=== PATIENT | female | born 1940 | race Asian ===

== ENCOUNTER → 2016-09-26 | Day surgery (SDC) | payer OTHER, SELFPAY ==
[~2016-09-26] VITALS: Ht 154.9 cm; Wt 86.2 kg
[2016-09-26] VITALS (11 sets, daily range): BP systolic 120–162; BP diastolic 72–80
[~2016-09-26] MED LIST: ADVAIR 250-501 EACH INH; ASPIR 8181 MG ORAL; BSS 15ml BTL ONE; BSS 500ml btl ONE; Dexamethasone 4mg/ml vial ONE; EPINEPHrine 1mg/1ml Amp ONE; LEVOTHYROXINE50 MCG ORAL; LR 1000ml ONE; Lidocaine 1% MPF 10mg/ml 5ml ONE; Midazolam 2mg/2ml Inj ONE; NS Irrig 1000ml ONE; Povidone-Iodine 5% opth solution ONE; SINGULAIR10 MG ORAL; Sodium Hyaluronate 14 mg/ml 0.85ml ONE; Sterile Water Irrig 1000ml IRRIG ONE; THEOPHYLLINE A300 MG PO; VIT D; fentaNYL 100 mcg/2 mL IV ONE
--- NOTE | 2016-09-26 07:41 | Pre-Procedure Note/Attestation ---
Pre-Procedure Note/Attestation Complete Prior to Procedure Planned Procedure: left Procedure Narrative: cataract extraction with implant left eye Indications for Procedure Pre-Operative Diagnosis: cataract left eye Attestation I attest that I discussed the nature of the procedure; its benefits; risks and complications; and alternatives (and the risks and benefits of such alternatives ), prior to the procedure, with the patient (or the patient's legal small business sales representative). I attest that, if there was a reasonable possibility of needing a blood transfusion, the patient (or the patient's legal small business sales representative) was given the [facility] standardized written summary, pursuant to the Abran Madelaine Blood Safety Act ([place] Health and Safety Code # 1645, as amended). I attest that I re-evaluated the patient just prior to the surgery and that there has been no change in the patient's H&P, except as documented below: KRISTIN YADAV Sep 26, 2016 07:41
[2016-09-26] MEDS: Phenylephrine 2.5% Op Soln LEFT EYE SCH ×3 (07:54→08:23)
[2016-09-26] MEDS: Tropicamide 1% Opth Soln LEFT EYE SCH ×3 (07:54→08:24)
[2016-09-26] MEDS: Gatifloxacin Opth Solution 0.5% LEFT EYE SCH ×3 (07:58→08:25)
[2016-09-26] MEDS: Diclofenac Sod 0.1% Op Soln LEFT EYE SCH ×3 (07:59→08:25)
[2016-09-26] MEDS: Tobradex Opth Susp 2.5ml LEFT EYE SCH ×3 (07:59→08:24)
[2016-09-26] MEDS: Akten 3.5% 1ml Btl LEFT EYE SCH ×3 (08:00→08:25)
--- NOTE | 2016-09-26 09:42 | Brief Operative Note ---
Immediate Post Operative Note Operative Note Pre-op Diagnosis: cataract left eye Procedure: phacoemulsification of cataract with implant left eye Post-op Diagnosis: same as pre-op Surgeon: kristin lock Boiler Tester: none Anesthesiologist: marlee loaiza Anesthesia: MAC Specimen: none Complications: none Condition: stable Estimated Blood Loss: none Drains: none Implant(s) used?: Yes KRISTIN LOCK Sep 26, 2016 09:42
--- NOTE | 2016-09-26 10:46 | 48 Hour Post Anesthesia Eval ---
Post Anesthesia Evaluation Procedure: cataract extraction left eye Date of Evaluation: Sep 26, 2016 Time of Evaluation: 10:45 Blood Pressure Systolic: 156 0: 75 Pulse Rate: 86 O2 Sat by Pulse Oximetry: 99 Airway: patent Nausea: No Vomiting: No Hydration Status: adequate Cardiopulmonary Status: normal Mental Status/LOC: patient returned to baseline Post-Anesthesia Complications: none Follow-up care needed: N/A MADHAV SPARKS CRNA Sep 26, 2016 10:46
--- NOTE | 2016-09-26 10:47 | Immediate Post-Op Evaluation ---
Immediate Post-Op Evalulation Immediate Post-Op Evalulation Procedure: cataract extraction left eye Date of Evaluation: Sep 26, 2016 Time of Evaluation: 09:40 IV Fluids: 200 Blood Pressure Systolic: 139 Blood Pressure Diastolic: 75 Pulse Rate: 86 Respiratory Rate: 14 O2 Sat by Pulse Oximetry: 99 Nausea: No Vomiting: No Patient Status: awake, reacts, patent Hydration Status: adequate Drug: none PHILIPPERIMADHAV HERNANDEZ CRNA Sep 26, 2016 10:47
--- NOTE | 2016-09-26 10:48 | Anethesia Preoperative Eval ---
Anesthesia Pre-op PMH/ROS General Date of Evaluation: Sep 26, 2016 Time of Evaluation: 09:10 Anesthesiologist: josse ASA Score: ASA 2 Mallampati Score Class I : Soft palate, uvula, fauces, pillars visible Class II: Soft palate, uvula, fauces visible Class III: Soft palate, base of uvula visible Class IV: Only hard plate visible Mallampati Classification: Class II Surgeon: Corbin Diagnosis: cataract Surgical Procedure: cataract extraction left eye IOL Anesthesia History: none Family History: no anesthesia problems Allergies: Coded Allergies: No Known Allergies (Unverified , 09/26/16) Medications: see eMAR Past Medical History Cardiovascular: Denies: CAD, HTN, ID, arrhythmia, other, valve dz Pulmonary: Reports: asthma Gastrointestinal/Genitourinary: Denies: CRI, ESRD, GERD, other Neurologic/Psychiatric: Denies: CVA, TIA, dementia, depression/anxiety, other Endocrine: Reports: hypothyroidism HEENT: Reports: cataract (L) Hematology/Immune: Denies: DVT, anemia, bleeding disorder, other Musculoskeletal/Integumentary: Denies: DDD, DJD, OA, RA, edema, other Other: obesity Anesthesia Pre-op Phys. Exam Physician Exam Last Vital Signs Date Time Temp Pulse Resp B/P Pulse Ox O2 Delivery O2 Flow Rate FiO2 09/26/16 10:40 97.2 77 20 153/72 99 Room Air Constitutional: NAD Neurologic: CN 2-12 intact Cardiovascular: RRR Respiratory: CTA Gastrointestinal: S/NT/ND Airway Exam Mallampati Classification 3 Mallampati Score: Class II MO: full Anesthesia Pre-op A/P Studies Pre-op Studies: EKG - SR Risk Assessment & Plan Plan: mac Status Change Before Surgery: No Pre-Antibiotics Drug: none MADHAV SPARKS SENIOR QA AUTOMATION ENGINEER Sep 26, 2016 10:48
--- NOTE | 2016-09-26 17:28 | Operative Note - Dictated ---
DATE OF OPERATION: 09/26/2016 PREOPERATIVE DIAGNOSIS: Cataract, left eye. POSTOPERATIVE DIAGNOSIS: Cataract, left eye. PROCEDURE: Phacoemulsification of cataract, left eye, with placement of a posterior chamber intraocular lens. SURGEON: Oleg Alaniz M.D. ([facility] [place]) VETERINARY TECHNOLOGY INSTRUCTOR: None. ANESTHESIA: MAC/topical. ANESTHESIOLOGIST: Maren Mcneil C.R.N.A. INDICATION FOR PROCEDURE: Poor vision, left eye. DESCRIPTION OF FINDINGS: Nuclear sclerotic and dense cortical cataract, left eye. DESCRIPTION OF PROCEDURE: The patient received a topical anesthetic block consisting of 3.5% Akten eye drops. The eye was then prepped and draped in the usual manner. A lid speculum was placed. An operating Zeiss microscope was positioned. A temporal corneal groove was made with the kaleb blade. A SuperSharp blade made a stab incision at the 6 o'clock position. A 0.1 mL of 1% nonpreserved intracameral lidocaine was injected. Healon was instilled into the anterior chamber, and a 2.5/2.8 mm trapezoidal kaleb blade was used to complete the temporal corneal wound. A synechotome was used to create an anterior capsular flap. Utrata forceps were used to complete the capsulorrhexis. BSS on a cannula was used to hydrodissect the nucleus. The lens nucleus was phacoemulsified in a phaco-fracture technique. Remaining cortical material was removed with the I/A and the posterior capsule was polished the I/A on Cap Vac. Healon was instilled into the capsular bag and anterior chamber, and an Campa foldable one-piece multifocal posterior chamber intraocular lens model [id number] power 22.0 diopter, serial #[id number] was placed in the injector. The lens was put in the capsular bag. The I/A tip was used to remove the Healon and position the lens. The wound edge was hydrated with BSS and a blunt-tipped cannula. The wound was checked and found to be watertight. The patient was asked to look at the coaxial microscope light and the implant was centered on the reflection. The lid speculum was removed and a drop of TobraDex and Zymaxid was placed. A clear plastic shield was taped over the eye. The patient tolerated the procedure well and left the room in good condition. Oleg Alaniz M.D. ([facility]) DR: JESSIKA JOB#: [id number] CC: Yenifer Merino M.D.
== END | disposition home or self-care (01) ==
LOC: SUR 06:30
DX: H25.12 Age-related nuclear cataract, left eye (principal); H25.012 Cortical age-related cataract, left eye; J45.909 Unspecified asthma, uncomplicated; R73.03 Prediabetes; E89.0 Postprocedural hypothyroidism; E55.9 Vitamin D deficiency, unspecified; I70.0 Atherosclerosis of aorta; E66.01 Morbid (severe) obesity due to excess calories; Z68.36 Body mass index [BMI] 36.0-36.9, adult; M85.80 Other specified disorders of bone density and structure, unspecified site; H91.90 Unspecified hearing loss, unspecified ear; E78.1 Pure hyperglyceridemia; Z96.652 Presence of left artificial knee joint
CPT/HCPCS: 66984; J0171; J1100; J2250; J3010; J7120; V2632; 94003; 94150

== ENCOUNTER 2017-01-29 12:00 | Outpatient (RCR) | payer OTHER ==
[~2017-01-29 12:00] MED LIST changes: -BSS 15ml BTL ONE; -BSS 500ml btl ONE; -Dexamethasone 4mg/ml vial ONE; -EPINEPHrine 1mg/1ml Amp ONE; -LR 1000ml ONE; -Lidocaine 1% MPF 10mg/ml 5ml ONE; -Midazolam 2mg/2ml Inj ONE; -NS Irrig 1000ml ONE; -Povidone-Iodine 5% opth solution ONE; -Sodium Hyaluronate 14 mg/ml 0.85ml ONE; -Sterile Water Irrig 1000ml IRRIG ONE; -fentaNYL 100 mcg/2 mL IV ONE
== END 2017-02-01 | disposition home or self-care (01) ==
LOC: PTY 12:00
DX: M17.11 Unilateral primary osteoarthritis, right knee (principal)
CPT/HCPCS: 97110; 97161; G0283

== ENCOUNTER 2017-02-07 13:05 | Outpatient (RCR) | payer OTHER | END 2017-03-04 | disposition home or self-care (01) | LOC: PTY 13:05 | DX: M17.11 Unilateral primary osteoarthritis, right knee (principal) | CPT/HCPCS: 97110; 97140; G0283 ==

== ENCOUNTER → 2017-04-04 | Outpatient (RCR) | payer OTHER | END | disposition home or self-care (01) | LOC: PTY 03-05 12:30 | DX: M17.11 Unilateral primary osteoarthritis, right knee (principal) | CPT/HCPCS: 97110; G0283 ==

== ENCOUNTER 2017-05-01 11:15 | Outpatient (RCR) | payer OTHER | END 2017-05-04 | disposition home or self-care (01) | LOC: PTY 11:15 | DX: M17.11 Unilateral primary osteoarthritis, right knee (principal); Z96.651 Presence of right artificial knee joint | CPT/HCPCS: 97110; G0283 ==

== ENCOUNTER 2017-10-21 08:30 | Outpatient (RCR) | payer OTHER | END 2017-11-02 | disposition home or self-care (01) | LOC: PTY 08:30 | DX: M25.512 Pain in left shoulder (principal); M75.02 Adhesive capsulitis of left shoulder ==

== ENCOUNTER 2017-11-05 09:10 | Outpatient (RCR) | payer OTHER | END 2017-12-02 | disposition home or self-care (01) | LOC: PTY 09:10 | DX: M75.02 Adhesive capsulitis of left shoulder (principal); M25.512 Pain in left shoulder ==

== ENCOUNTER 2017-12-06 13:24 | Outpatient (RCR) | payer OTHER | END 2018-01-02 | disposition home or self-care (01) | LOC: PTY 13:24 | DX: M75.02 Adhesive capsulitis of left shoulder (principal); M25.512 Pain in left shoulder ==